=== PATIENT | female | born 2000 | race Caucasian/White ===

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

== ENCOUNTER → 2023-04-23 | Outpatient (CLI) | payer BC, OTHER | LOC: M RAD 15:35 | PROVIDERS: ATTEND Nurse Practitioner Adult Health | DX: E04.9 Nontoxic goiter, unspecified (principal) ==

== ENCOUNTER → 2023-07-11 | Outpatient (REF) | payer BC, OTHER | LOC: M SFHCWAGY 17:47 | PROVIDERS: ATTEND Nurse Practitioner Family | DX: Z12.4 Encounter for screening for malignant neoplasm of cervix (principal) ==

== ENCOUNTER → 2024-08-17 | Outpatient (CLI) | payer BC, OTHER | LOC: M WUC 15:51 | PROVIDERS: ATTEND Physician Assistant | DX: M25.572 Pain in left ankle and joints of left foot (principal) ==

== ENCOUNTER → 2024-12-03 | Outpatient (CLI) | payer BC | LOC: M PLAIMG 13:09 | PROVIDERS: ATTEND Nurse Practitioner Family | DX: G44.89 Other headache syndrome (principal) ==